=== PATIENT | female | born 1970 | race Caucasian/White ===

== ENCOUNTER → 2017-11-11 | Outpatient (CLI) | payer BC ==
[2017-11-11 12:25] LABS: PLATELET COUNT, AUTOMATED 315 K/uL (150-450)
--- NOTE | 2017-11-11 12:28 | EKG ---
FACILITY: [facility] PATIENT NAME: INDIRA HERNANDEZ : [id number] MR: [id number] V: [id number] EXAM DATE: ORDERING PHYSICIAN: JOSE CHAVES TECHNOLOGIST: SHAHLA Test Reason : PREOP-KNEE Blood Pressure : / mmHG Vent. Rate : 055 BPM Atrial Rate : 055 BPM P-R Int : 126 ms QRS Dur : 088 ms QT Int : 412 ms P-R-T Axes : 061 037 030 degrees QTc Int : 394 ms Sinus bradycardia Nonspecific T wave abnormality Abnormal ECG No previous ECGs available Confirmed by LOLITA JERONIMO ([id number]) on 11/12/2017 7:44:39 AM Referred By: ANASTACIO Confirmed By:LOLITA JERONIMO
== END ==
LOC: LAB 11:57
PROVIDERS: ATTEND Orthopaedic Surgery
DX: M23.204 Derangement of unspecified medial meniscus due to old tear or injury, left knee (principal); M21.962 Unspecified acquired deformity of left lower leg; R00.1 Bradycardia, unspecified
CPT/HCPCS: 36415; 81001; 82040; 82247; 82310; 82374; 82435; 82565; 82947; 84075; 84132; 84155; 84295; 84450; 84460; 84520; 85025; 86850; 86900; 86901; 93005

== ENCOUNTER 2017-11-22 00:37 | Inpatient (IN) | payer BC ==
[2017-11-21 13:42] LABS: INR 0.97
[~2017-11-22] VITALS: Ht 170.2 cm; Wt 94.8 kg
[2017-11-22] VITALS (10 sets, daily range): BP systolic 103–131; BP diastolic 54–82
[~2017-11-22 00:37] MED LIST: CITA-139 PO; PROP160C20 PO; ZOLP-350 PO
--- NOTE | 2017-11-22 04:08 | LEVENE H&P ---
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 HISTORY OF PRESENT ILLNESS The patient has had a longstanding history of knee pain, dating back to open tibia fracture sustained many years back. The fracture healed uneventfully after surgical treatment and hardware was removed. There was never any infection, but she has had lingering medial knee pain since. In the last couple of years, this has become extremely painful and debilitating and refractory to conservative measures. Surgery is indicated to relieve symptoms at this time after failure of nonoperative measures. PAST MEDICAL HISTORY Notable for migraine headaches. She is otherwise generally healthy. PAST SURGICAL HISTORY She has a history of prior hip arthroscopy on the contralateral side and ORIF of her left leg and treatment of lacerations. FAMILY HISTORY Noncontributory. SOCIAL HISTORY Negative for tobacco and alcohol use. REVIEW OF SYSTEMS Negative. ALLERGIES None. CURRENT MEDICATIONS 1. Propranolol 160 mg per day when she needs treatment for headaches. 2. Citalopram 40 mg per day. 3. Zolpidem 10 mg as needed at bedtime. PHYSICAL EXAMINATION GENERAL: This is healthy female. She appears stated age. HEENT: She is normocephalic, atraumatic. NECK: Supple. LUNGS: Clear. HEART: Regular. ABDOMEN: Soft. ORTHOPEDIC EXAMINATION: The old fracture on the tibia is healed and nontender. Her surgical scar and traumatic scars are nontender. She has trace varus alignment compared to the contralateral. She has no notable thrust on ambulation. Her knee motion is supple. She has an effusion present. She is sharply tender at the joint line. Ligamentous stability is good. Extensor function is intact. RADIOGRAPHIC DATA Radiographs demonstrate end-stage medial DJD. She also has a subtle varus malunion of the proximal tibia. This measures only 5 degrees, but combined with the wear on the medial compartment, drastically alters her weightbearing line where this falls through the middle of the medial compartment on long standing films. 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 RYAN Reed and I and her spent a lot of time discussing this issue and the options. I think that the two most viable options that would provide relief would be high tibial osteotomy with concomitant microfracture, or proceeding directly to knee arthroplasty. After our extensive discussion, she and her concur that she would like to proceed with knee arthroplasty. The subtle deformity could be corrected through the cut without compromising the alignment of the tibial component or the longevity of the implant. Nature of the procedure, risks, benefits, the anticipated rehab course are discussed. The risks of the procedure include but are not limited to , major medical or anesthetic complication, infection, neurovascular injury, blood transfusion, stiffness, scarring, fracture, tendon rupture, instability, implant loosening, migration or failure, persistent or recurrent pain, need for additional surgery and other unforeseen. She understands and wishes to proceed. A signed permit is placed in the chart. No guarantees are given or implied. NICKIE
[2017-11-22] MEDS ORDERED: DEXAMETHASONE SOD PHOS 10MG/ML ONE (14:13)
[2017-11-22] MEDS ORDERED: PROPOFOL EMUL(*) 10MG/ML 20 ML 20 ML ONE (14:13)
[2017-11-22] MEDS ORDERED: LIDOCAINE MPF 1% 5 ML VIAL ONE (14:13)
[2017-11-22] MEDS ORDERED: ONDANSETRON 4 MG/2 ML VIAL ONE (14:13)
[2017-11-22] MEDS ORDERED: fentaNYL CITR 100 MCG/2 ML AMP ONE (14:14)
[2017-11-22] MEDS ORDERED: MIDAZOLAM 2 MG/2 ML VIAL ONE (14:14)
[2017-11-22] MEDS ORDERED: MORPHINE PF 5 MG/10 ML AMP ONE (14:14)
[2017-11-22] MEDS ORDERED: FAMOTIDINE 20 MG TAB PO ONE (15:15)
[2017-11-22] MEDS ORDERED: MIDAZOLAM 2 MG/2 ML VIAL IVP ONE (15:15)
[2017-11-22] MEDS ORDERED: LIDOCAINE/SOD BICARB 8.4% SYR ID ONE (15:15)
[2017-11-22] MEDS ORDERED: cloNIDine EPIDUR INJ 100MCG/ML 40 MCG, ROPIVACAINE 0.5% 20 ML VIAL 25 ML, EPINEPHrine H... INJ ONE (15:15)
[2017-11-22] MEDS ORDERED: TRANEXAMIC AC 1000 MG/10ML SDV 1,000 MG in DEXTROSE 5% 50 ML BAG 50 ML IV ONE (15:15)
[2017-11-22] MEDS ORDERED: NORMOSOL R SOLN(*) 1000 ML BAG 1,000 ML IV PRN ×2 (15:15→18:00)
[2017-11-22] MEDS ORDERED: ceFAZolin(*) 2GM/D5W 50ML 50 ML IVPB ONE (15:15)
[2017-11-22] MEDS ORDERED: PHENYLEPHRINE 10 MG/1 ML VIAL ONE (15:30)
[2017-11-22] MEDS ORDERED: LIDOCAINE 2% JELLY 5 ML TUBE ONE (15:38)
[2017-11-22] MEDS ORDERED: LACTATED RINGER 3000 ML BAG IR ONE (16:14)
[2017-11-22] MEDS ORDERED: BENZOCAINE/MENTHOL 1 EACH LOZG PO PRN (18:00)
[2017-11-22] MEDS ORDERED: MAGNESIUM HYDROXIDE* 30ML UDCP PO PRN (18:00)
[2017-11-22] MEDS ORDERED: ACETAMINOPHEN 325 MG TAB PO PRN (18:00)
[2017-11-22] MEDS ORDERED: diphenhydrAMINE 25 MG CAP PO PRN ×2 (18:00→18:05)
[2017-11-22] MEDS ORDERED: diphenhydrAMINE 50 MG/ML VIAL IVP PRN (18:00)
[2017-11-22] MEDS ORDERED: PROMETHAZINE 25 MG/ML 1 ML AMP IVP PRN (18:00)
[2017-11-22] MEDS ORDERED: BISACODYL 10 MG SUPP PR PRN (18:00)
[2017-11-22] MEDS ORDERED: FLUSH 10 ML SYR IVP PRN (18:00)
[2017-11-22] MEDS ORDERED: NALBUPHINE HCL 10 MG/ML AMP IVP PRN (18:05)
[2017-11-22] MEDS ORDERED: NALOXONE HCL 0.4 MG/ML VIAL IVP PRN (18:05)
[2017-11-22] MEDS ORDERED: METOCLOPRAMIDE 10 MG/2 ML SDV IVP PRN (18:05)
[2017-11-22] MEDS ORDERED: ONDANSETRON 4 MG/2 ML VIAL IVP PRN ×2 (18:05→18:10)
--- NOTE | 2017-11-22 20:40 | RADIOLOGY IMAGING REPORT ---
FACILITY: [facility] PATIENT NAME: Brianna Bashir : 1970 MR: [id number] V: [id number] EXAM DATE: ORDERING PHYSICIAN: JOSE CHAVES TECHNOLOGIST: Location: [facility] Patient: Brianna Bashir : 1970 Visit/Account:[id number] Date of Sevice: 11/22/2017 EXAMINATION: Left knee radiographs 2 views HISTORY: Postop left TKA. COMPARISON: None. FINDINGS: AP and crosstable lateral views of the left knee are obtained. Bones: There is no periprosthetic fracture. There is an old healed fracture of the proximal tibial d iaphysis. Joint spaces: Negative. Hardware: Total knee arthroplasty is well-positioned. Alignment: Normal. Soft tissues: Anterior soft tissue gas and swapnil related to recent surgery. Effusion: None. IMPRESSION: Status post left total knee arthroplasty without evidence of postoperative complication. Report Dictated By: Renetta Kwan MD at 11/22/2017 8:35 PM Report E-Signed By: Renetta Kwan MD at 11/22/2017 8:36 PM [id number]
[2017-11-22] MEDS ORDERED: PROPRANOLOL HCL LA 80 MG CAPCR PO SCH (21:40)
[2017-11-22] MEDS ORDERED: RIZATRIPTAN BENZOAT (ODT) 10MG PO PRN (21:55)
--- NOTE | 2017-11-22 22:00 | Hospitalist Progress Note ---
Subjective Progress Notes Subjective No cp/sob. No concerns from patient. No reported concerns from Vargas Lopes who gave a check out. Physical Exam Vital Signs Date Time Temp Pulse Resp B/P (MAP) Pulse Ox O2 Delivery O2 Flow Rate FiO2 11/22/17 19:42 98.2 62 16 114/70 (85) 97 Nasal Cannula 2.0 Intake and Output 11/23/17 07:00 Intake Total 4360 ml Output Total 100 ml Balance 4260 ml Intake Oral 360 ml IV Total 2000 ml Other 2000 ml Output Estimated Blood Loss 100 ml # Voids 0 General Appearance: Alert, Awake, No Acute Distress Cardiovascular: Regular Rate and Rhythm Respiratory: Clear to Auscultation Extremities: No Edema Assessment and Plan Problems: (1) Status post knee replacement Status: Acute Assessment & Plan: There is no anesthesia not on the chart. No CV/pulmonary issues. The patient has no history of DVT/PE. The patient will be on ASA 325mg a day for 30 days after surgery for blood clot prevention. (2) Migraine Status: Chronic Assessment & Plan: Continue chronic propranolol for prophylaxis and Maxalt for exacerbation. (3) Depression Status: Chronic Assessment & Plan: Continue chronic citalopram. Problem Qualifiers (1) Status post knee replacement: Laterality: left Qualified Codes: Z96.652 - Presence of left artificial knee joint KENA SOLIS MD Nov 22, 2017 22:00
[2017-11-22] MEDS: CITALOPRAM HYDROBROM 20 MG TAB PO SCH (22:25)
[2017-11-22] MEDS: PROPRANOLOL HCL LA 80 MG CAPCR PO SCH (22:25)
[2017-11-22] MEDS: APAP/HYDROCODONE 325/7.5 TAB PO PRN (22:25)
[2017-11-22] MEDS: ZOLPIDEM TARTRATE 5 MG TAB PO PRN (22:25)
[2017-11-22] MEDS ORDERED: RIZA10TA PO (23:02)
[2017-11-23] VITALS: BP 103/62
[2017-11-23] MEDS: ceFAZolin 1 GM VIAL IVP SCH ×3 (00:17→16:11)
[2017-11-23] MEDS: DIAZEPAM 5 MG TAB PO PRN ×4 (02:25→20:39)
[2017-11-23] MEDS: APAP/HYDROCODONE 325/7.5 TAB PO PRN ×5 (02:25→20:39)
[2017-11-23] MEDS: CELECOXIB 200 MG CAP PO SCH ×2 (07:41→16:35)
[2017-11-23 07:49] VITALS: BP 102/63
--- NOTE | 2017-11-23 08:17 | Hospitalist Progress Note ---
Subjective Progress Notes Subjective No cp/sob. No concerns from patient or staff. Physical Exam Vital Signs Date Time Temp Pulse Resp B/P (MAP) Pulse Ox O2 Delivery O2 Flow Rate FiO2 11/23/17 08:00 98 Nasal Cannula 2.0 11/23/17 07:49 98.2 64 16 102/63 (76) General Appearance: Alert, Awake, No Acute Distress Assessment and Plan Problems: (1) Status post knee replacement Status: Acute Assessment & Plan: There is no anesthesia note on the chart. No CV/pulmonary issues. The patient has no history of DVT/PE. The patient will be on ASA 325mg a day for 30 days after surgery for blood clot prevention. (2) Migraine Status: Chronic Assessment & Plan: Continue chronic propranolol for prophylaxis and Maxalt for exacerbation. (3) Depression Status: Chronic Assessment & Plan: Continue chronic citalopram. Exam Sepsis Risk: No Definite Risk Problem Qualifiers (1) Status post knee replacement: Laterality: left Qualified Codes: Z96.652 - Presence of left artificial knee joint KENA SOLIS MD Nov 23, 2017 08:17
[2017-11-23] MEDS: ASPIRIN 325 MG TAB PO SCH (08:28)
[2017-11-23 10:27] VITALS: Ht 170.2 cm; Wt 94.8 kg
[2017-11-23 16:14] VITALS: BP 102/63
--- NOTE | 2017-11-23 18:40 | OPERATIVE REPORT 1 ---
EVENT DATE: November 22, 2017 SURGEON: Juan Sin MD ANESTHESIOLOGIST: Alvarado Palma MD ANESTHESIA: General plus spinal. EMPLOYMENT OFFICER: Konstantin Lopes PA-C PREOPERATIVE DIAGNOSIS Left knee degenerative joint disease. POSTOPERATIVE DIAGNOSIS Left knee degenerative joint disease. PROCEDURE PERFORMED Left total knee arthroplasty. ESTIMATED BLOOD LOSS Minimal. DRAINS None. SPECIMENS None. COMPLICATIONS None apparent. TOURNIQUET TIME 15 minutes IMPLANTS USED Quantum [employer]lectrricsathlon knee system, a 4 left PS femur, a 4 standard tibial baseplate , a 36 mm universal, symmetric, all-polyethylene patellar button, and a 13 mm PS tibial tray liner polyethylene X3. INDICATIONS The patient is a 47-year-old woman who has progressive pain and disability related to end-stage knee arthroscopy, primarily the medial compartment. She has some patellofemoral pain. She does have a subtle malalignment related to an old varus malunion at the metaphyseal junction of the proximal tibia. This measures only 5 degrees. Surgery is indicated to relieve pain and improve function after failure of nonoperative measures. DESCRIPTION OF PROCEDURE The patient was taken to the operating room and placed supine on the operating table. A spinal block was placed by the anesthesiologist. General anesthesia was induced. Antibiotics and TXA were administered IV. The left lower extremity was prepped and draped in the usual sterile fashion for knee arthroplasty. The limb was exsanguinated with an Esmarch bandage. The tourniquet was inflated to 250 mmHg. A longitudinal incision was made incorporating the longitudinal incision over her old I and D and ORIF for her proximal tibia. Dissection was carried down through the skin and subcutaneous tissue to the extensor mechanism. Full-thickness flaps developed far enough medially to allow a medial parapatellar arthrotomy be performed. The patella was everted, and the knee was brought into the flexed position. The fat pad, anterior horn of the menisci, and the cruciate ligaments were debrided. Very minimal subperiosteal medial release was initiated in a titrated fashion to start to balance the knee. A step drill was used to enter the distal femur. A 10-inch long alignment guide was used to engage the isthmus. Cut was set for 6 degrees valgus relative to the anatomic axis. A 10 mm resection block was applied, pinned, and cuts made with an oscillating saw. AP sizing guide was applied. A size 4 was optimal without risk of notching. The four-in-one cutting block was brought in. Anterior, posterior, posterior chamfer, and anterior chamfer cuts were made respectively. The PS block was applied and centered. Medial and lateral bone was removed through the block. The trial femur had nice [id number] fit. Attention was turned to tibial preparation. Due to the deformity, extramedullary alignment was used. The extramedullary alignment guide was placed and positioned for varus, valgus, posterior slope, and rotation. This was set at a height to resect 9 mm off the relatively intact lateral tibial plateau. This was dropped down a millimeter or two to ensure an adequate cut. The block was pinned, extramedullary alignment check is doubly made, and then the cuts were made with an oscillating saw. After removal of the posterior condylar bone and debris, gaps were balanced and symmetric with no additional releases required. A size 4 tibial baseplate provided bony coverage without soft tissue overhang. This was inserted with the trial liner and trial femur. The knee was brought to full extension. The patella was taken from a starting thickness of 22 to a residual of 14 with the patellar clamp and oscillating saw. A 36 provided optimum bony coverage without soft tissue overhang. Lug holes were drilled. The patella tracked with the no-touch technique. Final tibial preparation was made assuring appropriate rotational and translational position of the component. The boss was reamed. The fin was punched. The surfaces were copiously lavaged. Meticulous hemostasis was assured, and then mixed polymethyl methacrylate wad made and all components cemented in a single stage. When the cement had fully polymerized, the tourniquet was deflated, and hemostasis was assured. A 13 was selected at the optimal size to fill up the gap, allowing the knee to drop to full extension without hyperextension, providing optimal soft tissue tension and stability. The tray was lavaged and dried, and the actual liner was locked into the baseplate. The joint was reduced. The arthrotomy was closed in flexion with #2 Ethibond, the subcutaneous tissue with 3-0 Vicryl, and the skin with surgical swapnil. Xeroform and 4 x 4's used for a dry, sterile dressing with a compression wrap. The patient was awakened from anesthesia and taken to the recovery room in stable condition having tolerated the procedure well. PLAN The plan is for standard TKA rehab protocol. MTDD
[2017-11-23 20:38] VITALS: BP 96/58
[2017-11-23] MEDS: ZOLPIDEM TARTRATE 5 MG TAB PO PRN (20:39)
[2017-11-23] MEDS: CITALOPRAM HYDROBROM 20 MG TAB PO SCH (20:39)
[2017-11-23] MEDS: PROPRANOLOL HCL LA 80 MG CAPCR PO SCH (20:40)
[2017-11-24 00:04] VITALS: BP 99/66
[2017-11-24] MEDS: APAP/HYDROCODONE 325/7.5 TAB PO PRN ×6 (00:36→22:06)
[2017-11-24] MEDS: DIAZEPAM 5 MG TAB PO PRN ×4 (02:53→22:06)
[2017-11-24 04:06] VITALS: BP 102/64
[2017-11-24 08:51] VITALS: BP 104/62
[2017-11-24] MEDS: CELECOXIB 200 MG CAP PO SCH ×2 (08:59→18:14)
[2017-11-24] MEDS: ASPIRIN 325 MG TAB PO SCH (09:00)
--- NOTE | 2017-11-24 09:01 | Hospitalist Progress Note ---
Subjective Progress Notes Subjective She reports surgical site pain. No MAGANA. No CP/SOB. Physical Exam Vital Signs Date Time Temp Pulse Resp B/P (MAP) Pulse Ox O2 Delivery O2 Flow Rate FiO2 11/24/17 08:51 98.3 69 22 104/62 (76) 89 Room Air 11/24/17 04:06 0.5 General Appearance: Alert, Awake Cardiovascular: Regular Rate and Rhythm Respiratory: Clear to Auscultation Assessment and Plan Problems: (1) Status post knee replacement Status: Acute Assessment & Plan: No current CV/pulmonary issues. The patient has no history of DVT/PE. The patient will be on ASA 325mg a day for 30 days after surgery for blood clot prevention. (2) Migraine Status: Chronic Assessment & Plan: Continue chronic propranolol for prophylaxis (at lower dose - 60mg) and Maxalt for exacerbation. (3) Depression Status: Chronic Assessment & Plan: Continue chronic citalopram. Exam Sepsis Risk: No Definite Risk Problem Qualifiers (1) Status post knee replacement: Laterality: left Qualified Codes: Z96.652 - Presence of left artificial knee joint RAZ WELLS MD Nov 24, 2017 09:01
[2017-11-24] MEDS: PROPRANOLOL HCL LA 60 MG CAPCR PO SCH (09:54)
[2017-11-24] MEDS: ASPIRIN 325 MG ENTERIC COATED PO SCH (13:59)
[2017-11-24] MEDS ORDERED: HYDR-4308 PO (14:17)
[2017-11-24] MEDS ORDERED: DIAZ-303 PO (14:19)
[2017-11-24] MEDS ORDERED: CELE-1 PO (14:21)
[2017-11-24 16:11] VITALS: BP 104/68
[2017-11-24 19:53] VITALS: BP 121/77
[2017-11-24] MEDS: CITALOPRAM HYDROBROM 20 MG TAB PO SCH (22:06)
[2017-11-24] MEDS: ZOLPIDEM TARTRATE 5 MG TAB PO PRN (22:06)
[2017-11-25] MEDS: APAP/HYDROCODONE 325/7.5 TAB PO PRN ×2 (02:08→07:04)
[2017-11-25 04:11] VITALS: BP 124/82
[2017-11-25] MEDS: DIAZEPAM 5 MG TAB PO PRN (04:16)
[2017-11-25] MEDS ORDERED: CELE-1 PO (06:50)
[2017-11-25] MEDS ORDERED: HYDR-4308 PO (06:51)
--- NOTE | 2017-11-25 08:08 | Hospitalist Progress Note ---
Subjective Progress Notes Subjective No cp/sob. Physical Exam Vital Signs Date Time Temp Pulse Resp B/P (MAP) Pulse Ox O2 Delivery O2 Flow Rate FiO2 11/25/17 04:11 98.3 72 18 124/82 (96) 94 Nasal Cannula 0.5 General Appearance: Alert, Awake, No Acute Distress Respiratory: Clear to Auscultation Assessment and Plan Problems: (1) Status post knee replacement Status: Acute Assessment & Plan: No current CV/pulmonary issues. The patient has no history of DVT/PE. The patient will be on ASA 325mg a day for 30 days after surgery for blood clot prevention. (2) Hypoxia Status: Acute Assessment & Plan: There is low clinical suspicion for PE or pneumonia. It is because of [place]'s high elevation, narcotic use and recent surgery. If the patient goes home on O2, then the patient will follow up the PCP to check a room air saturation in a couple of days. (3) Migraine Status: Chronic Assessment & Plan: Continue chronic propranolol for prophylaxis and Maxalt for exacerbation. (4) Depression Status: Chronic Assessment & Plan: Continue chronic citalopram. Exam Sepsis Risk: No Definite Risk Problem Qualifiers (1) Status post knee replacement: Laterality: left Qualified Codes: Z96.652 - Presence of left artificial knee joint KENA SOLIS MD Nov 25, 2017 08:08
[2017-11-25] MEDS ORDERED: ASPI-764 PO (08:13)
[2017-11-25 08:28] VITALS: BP 125/78
[2017-11-25] MEDS: CELECOXIB 200 MG CAP PO SCH (08:35)
[2017-11-25] MEDS: ASPIRIN 325 MG ENTERIC COATED PO SCH (08:35)
[2017-11-25] MEDS: PROPRANOLOL HCL LA 60 MG CAPCR PO SCH (08:35)
== END 2017-11-25 09:25 | disposition home or self-care (01) | DRG 470 ==
LOC: OR 00:37 → OBSVTOIN 19:45 → MED 19:45
PROVIDERS: ADMIT Orthopaedic Surgery; ATTEND Orthopaedic Surgery
PROC: 0SRD0J9 Replacement of Left Knee Joint with Synthetic Substitute, Cemented, Open Approach (ICD-10-PCS; principal; 2017-11-22 16:15)
DX: M17.12 Unilateral primary osteoarthritis, left knee (principal); M21.162 Varus deformity, not elsewhere classified, left knee; F32.9 Major depressive disorder, single episode, unspecified; G47.00 Insomnia, unspecified; G43.909 Migraine, unspecified, not intractable, without status migrainosus; R09.02 Hypoxemia; T70.29XA Other effects of high altitude, initial encounter; T40.605A Adverse effect of unspecified narcotics, initial encounter; Y92.230 Patient room in hospital as the place of occurrence of the external cause; Y83.8 Other surgical procedures as the cause of abnormal reaction of the patient, or of later complication, without mention of misadventure at the time of the procedure; Y79.3 Surgical instruments, materials and orthopedic devices (including sutures) associated with adverse incidents
CPT/HCPCS: 36415; 81025; 85610; 86850; 86900; 86901; 97161; C1713; C1776; J0171; J0690; J0735; J1100; J1885; J2001; J2250; J2270; J2370; J2405; J2704; J2765; J2795; J3010; J7050; J7060